=== PATIENT | female | born 2000 | race Caucasian/White ===

== ENCOUNTER 2024-03-13 19:51 | Emergency (ER) | payer BC, SELFPAY ==
[2024-03-13 19:54] VITALS: PULSE 104; RESP 18; TEMP 36.6; O2SAT 99
--- NOTE | 2024-03-13 21:10 | W.ED.GENAD ---
Discharge Plan Disposition Patient Disposition: Home Condition: Improving Discharge Details Clinical Impression: Esophageal foreign body Primary Care Provider: [place],Local ED Provider: Amol Chan Discharge Instructions Instructions: Esophageal Foreign Body (ED) Additional Instructions: Please continue ensure that you chew your food appropriately, take small bites. And be cautious of nuts seeds or protein unless it is chewed well. Return to the emergency department immediately for any new or significant worsening symptoms otherwise follow-up with primary care provider if needed. Referrals: Primary Care Provider [Outside] [facility] General Mode of arrival: ambulatory. Date/Time Provider Initiated Documentation: 03/13/24 19:54. Limitations to Documentation: no limitations. Information obtained by: patient and RN notes reviewed. History of Present Illness 23 year old F presents to the emergency department with the chief complaint of Esophageal foreign body, described as moderate and similar to prior episodes, Patient started experiencing this minute(s) (30) and it has been constant. No relieving factors improve symptom(s), Eating worsens symptoms . Patient notes no other symptoms.. Patient did receive the following treatments prior to arrival, none Related Data Allergies Allergy/AdvReac Type Severity Reaction Status Date / Time No Known Allergies Allergy Unverified 03/13/24 19:58 General Stated Complaint: ForeignBody ABRAHAM: 3 Review of Systems ENT Ears, Nose, Mouth, and Throat: Reports as per HPI, Reports dysphagia and Reports sore throat Cardiovascular Cardiovascular: Denies syncope and Denies dyspnea Respiratory Respiratory: Denies cough and Denies dyspnea Gastrointestinal Gastrointestinal: Reports dysphagia Neurologic Neurologic: Denies syncope Exam Const General: cooperative, comfortable and no acute distress Orientation: alert and awake HENNY Head: normal to inspection, normocephalic and atraumatic General nose exam: external nose normal Face and sinus: no erythema Mouth: oral mucosae normal, no drooling, no muffled voice and no trismus Throat: posterior oropharynx normal Neck Neck: normal visual inspection, full ROM, no meningeal signs, trachea midline and supple Resp Effort & Inspection: normal respiratory effort and able to speak in complete sentences Auscultation: clear to auscultation bilaterally Cardio Rate: regular rate Rhythm: regular rhythm Heart Sounds: S1 normal, S2 normal, normal S1 and S2, no click, no gallops, no murmurs and no rubs Skin General skin exam: no rashes or lesions noted and dry skin (warm) Neuro General: patient alert, patient awake, patient oriented x3, gait normal and moves all extremities Cognition: normal cognition Speech: speech normal Course Vital Signs Vital signs: Vital Signs Temperature 36.6 C 03/13/24 19:54 Pulse 104 H 03/13/24 19:54 Respiratory Rate 18 03/13/24 19:54 Pulse Oximetry 99 03/13/24 19:54 Temperature 36.6 C 03/13/24 19:54 Temperature Source Skin 03/13/24 19:54 Pulse 104 H 03/13/24 19:54 Respiratory Rate 18 03/13/24 19:54 Respiratory Effort Normal, Non-Labored 03/13/24 20:10 Respiratory Pattern Normal 03/13/24 20:10 Pulse Oximetry 99 03/13/24 19:54 Oxygen Delivery Method Room Air 03/13/24 19:54 Oxygen Flow Rate 0 03/13/24 19:54 Medical Decision Making Patient presenting to the emergency department for chief complaint of esophageal foreign body. Patient reports that since she has been young she has had intermittent food bolus foreign bodies that typically cleared on their own with warm water. Patient states that this typically only last for 15 minutes or so but this occasion has lasted longer causing her to come to the emergency department. Patient denies all other symptoms. Physical exam is unremarkable, no dysphonia, no drooling, clear lung sounds, otherwise unremarkable exam. Patient states she was eating chicken and broccoli and unsure which 1 got stuck. Given nonemergent exam with no worrisome findings and normal vocalization will have patient try soda, gargle water, or try effervescence if needed. Patient was able to clear foreign body after water and soda. Patient had. As observation had no worsening of symptoms so patient discharged with return and follow-up precautions discussed. After discussion of diagnosis and plan of care patient has no further needs, questions, or concerns and states clear understanding to return to the emergency department for any worsening symptoms. This documentation was generated using [employer] dictation system, please disregard any oddities of phrase or misspellings. Quality:SDOH Health Related Social Needs: No Data to Display PFSH All Active Problems Esophageal foreign body (Acute) Social History Smoking/Tobacco Use Status: Never Smoking risk assessment performed?: Yes Alcohol Intake: current Alcohol Intake frequency: a few times a month Substance use type: does not use
[2024-03-13 21:26] VITALS: PULSE 70; RESP 18; TEMP 37.1; O2SAT 98
== END 2024-03-13 21:21 | disposition home or self-care (01) ==
PROVIDERS: Emergency Provider Nurse Practitioner Family
DX: T18.128A Food in esophagus causing other injury, initial encounter (principal); W44.F3XA Food entering into or through a natural orifice, initial encounter; Y93.89 Activity, other specified
CPT/HCPCS: 99283